=== PATIENT | female | born 1980 | race Caucasian/White ===

== ENCOUNTER 2017-06-05 00:53 | Day surgery (SDC) | payer OTHER ==
[~2017-06-05 00:53] MED LIST: ALBU90OI INH; ATOR10 PO; BUPR75 PO; Benazepril HCl20 MG PO; CYCL10 PO; Clindamycin HC300 MG PO; DOCU100 PO; DULO60 PO; FAMO40 PO; FURO40 PO; GABA300 PO; GLIP10 PO; GLIP5 PO; GLIP5ER PO; HYDACE5 PO; HYDCHL25 PO; Humalog100 UNIT/1 SC; IBUP800 PO; INSDET100 SC; INSU100I6 UD; INSUASPI SC; LABE100 PO; LAVAP17G PO; LEVEMIR FL100 UNIT/1 SC; LISI5 PO; LORA1 PO; Lantus100 UNIT/1 SC; METF500 PO; METF500C PO; METH5 PO; MIRALAX17 GM PO; MULVITMINE PO; NAPR500 PO; Neurontin300 MG PO; Novolog100 UNIT/2 SC; OXYACE5T PO; OXYC5 PO; PENVK500 PO; POTCHL10ER PO; Percocet 7.5-31 EACH PO; QUDEXY XR50 MG PO; RXHYDMOR2 PO; SULTRIDS PO; TRAM50 PO
== END 2017-06-05 13:55 | disposition home or self-care (01) ==
LOC: ATC 00:53
DX: Z48.00 Encounter for change or removal of nonsurgical wound dressing (principal); T81.31XS Disruption of external operation (surgical) wound, not elsewhere classified, sequela
CPT/HCPCS: 99211

== ENCOUNTER 2017-06-07 00:40 | Day surgery (SDC) | payer OTHER | END 2017-06-07 14:07 | disposition home or self-care (01) | LOC: ATC 00:40 | DX: T81.31XS Disruption of external operation (surgical) wound, not elsewhere classified, sequela (principal) | CPT/HCPCS: 99212 ==

== ENCOUNTER 2017-06-21 09:40 | Day surgery (SDC) | payer OTHER | END 2017-06-21 14:30 | disposition home or self-care (01) | LOC: WOUND 09:40 | PROC: 0HB7XZZ Excision of Abdomen Skin, External Approach (ICD-10-PCS; principal; 2017-06-21) | DX: Z48.00 Encounter for change or removal of nonsurgical wound dressing (principal); T81.31XS Disruption of external operation (surgical) wound, not elsewhere classified, sequela; E11.9 Type 2 diabetes mellitus without complications; E66.01 Morbid (severe) obesity due to excess calories | CPT/HCPCS: G0463 ==

== ENCOUNTER 2017-06-26 01:01 | Day surgery (SDC) | payer OTHER | END 2017-06-26 16:38 | disposition home or self-care (01) | LOC: ATC 01:01 | DX: Z48.00 Encounter for change or removal of nonsurgical wound dressing (principal); T81.31XS Disruption of external operation (surgical) wound, not elsewhere classified, sequela | CPT/HCPCS: 99211 ==

== ENCOUNTER 2017-07-03 08:00 | Day surgery (SDC) | payer OTHER | END 2017-07-03 23:01 | disposition home or self-care (01) | LOC: WOUND 08:00 | DX: Z48.00 Encounter for change or removal of nonsurgical wound dressing (principal); T81.31XS Disruption of external operation (surgical) wound, not elsewhere classified, sequela; E66.01 Morbid (severe) obesity due to excess calories | CPT/HCPCS: G0463 ==

== ENCOUNTER 2017-07-08 09:35 | Day surgery (SDC) | payer OTHER | END 2017-07-08 11:08 | disposition home or self-care (01) | LOC: WOUND 09:35 | DX: Z48.00 Encounter for change or removal of nonsurgical wound dressing (principal); T81.31XS Disruption of external operation (surgical) wound, not elsewhere classified, sequela; E11.9 Type 2 diabetes mellitus without complications; E66.01 Morbid (severe) obesity due to excess calories; D25.9 Leiomyoma of uterus, unspecified | CPT/HCPCS: G0463 ==

== ENCOUNTER 2017-07-23 10:20 | Day surgery (SDC) | payer OTHER | END 2017-07-23 23:24 | disposition home or self-care (01) | LOC: WOUND 10:20 | DX: Z48.00 Encounter for change or removal of nonsurgical wound dressing (principal); T81.31XS Disruption of external operation (surgical) wound, not elsewhere classified, sequela; E11.9 Type 2 diabetes mellitus without complications; E66.01 Morbid (severe) obesity due to excess calories | CPT/HCPCS: G0463 ==

== ENCOUNTER 2017-10-09 09:39 | Emergency (ER) | payer OTHER ==
[~2017-10-09] VITALS: Ht 172.7 cm; Wt 136.1 kg
[2017-10-09 10:36] LABS: BASOPHILS ABSOLUTE AUTO 0.05 K/mm3 (0.00-0.23); BASOPHILS PERCENT AUTO 0 % (0-2); EOSINOPHILS ABSOLUTE AUTO 0.24 K/mm3 (0.00-0.68); EOSINOPHILS PERCENT AUTO 2 % (0-6); Hematocrit 37.8 % (33.0-51.0); IMMATURE GRAN ABSOLUTE AUTO 0.07 K/mm3 (0.00-0.10); IMMATURE GRAN PERCENT AUTO 1 % (0-1); LYMPHOCYTES ABSOLUTE AUTO 2.73 K/mm3 (0.84-5.20); LYMPHOCYTES PERCENT AUTO 19 % (21-46); MONOCYTES ABSOLUTE AUTO 0.65 K/mm3 (0.16-1.47); MONOCYTES PERCENT AUTO 5 % (4-13); Mean Corpuscular HGB 28.8 pg (26.0-34.0); Mean Corpuscular HGB Conc 34.4 g/dL (31.5-36.5); Mean Corpuscular Volume 84 fL (80-100); Mean Platelet Volume 9.6 fL (9.1-12.4); NEUTROPHILS ABSOLUTE AUTO 10.86 K/mm3 (1.96-9.15); NEUTROPHILS PERCENT AUTO 74 % (41-73); Platelet Count 260 K/mm3 (150-400); RDW Coefficient Variation 14.5 % (11.7-14.2); RDW Standard Deviation 44.5 fL (35.1-46.3); Red Blood Cell Count 4.51 M/mm3 (3.80-5.20)
[2017-10-09 11:07] LABS: Anion Gap 13 mmol/L (6-16); Blood Urea Nitrogen 9 mg/dL (8-24); CO2, Blood 20 mmol/L (21-32); Calcium, Blood 8.7 mg/dL (8.5-10.1); Chloride, Blood 105 mmol/L (98-108); Creatinine, Blood 0.64 mg/dL (0.40-1.00); Glomerular Filtration Rate >60 (60-); Glucose, Blood 271 mg/dL (70-99); Potassium, Blood 3.7 mmol/L (3.5-5.5); Sodium, Blood 138 mmol/L (136-145)
[2017-10-09] MEDS ORDERED: ALBU90OI INH (12:50)
[2017-10-09] MEDS ORDERED: Prednisone20 MG PO (12:51)
== END 2017-10-09 13:30 | disposition home or self-care (01) ==
LOC: ER 09:39
PROVIDERS: Emergency Medicine
DX: J40 Bronchitis, not specified as acute or chronic (principal); E11.65 Type 2 diabetes mellitus with hyperglycemia; E11.40 Type 2 diabetes mellitus with diabetic neuropathy, unspecified; Z87.891 Personal history of nicotine dependence; Z88.0 Allergy status to penicillin; Z88.8 Allergy status to other drugs, medicaments and biological substances; Z79.899 Other long term (current) drug therapy; Z79.4 Long term (current) use of insulin
CPT/HCPCS: 71046; 80048; 85025; 94640; 99283; J1100

== ENCOUNTER → 2019-02-10 | Outpatient (CLI) | payer OTHER ==
[~2019-02-10] MED LIST changes: +Prednisone20 MG PO
== END | disposition home or self-care (01) ==
LOC: LAB 15:40 → LAB SHORT 15:40
DX: H00.015 Hordeolum externum left lower eyelid (principal); H00.035 Abscess of left lower eyelid
CPT/HCPCS: 87070; 87075; 87077; 87147; 87186; 87205

== ENCOUNTER → 2019-10-10 | Outpatient (CLI) | payer OTHER ==
[~2019-10-10] MED LIST changes: +ATOR40TA PO; +BASAGLAR K100 UNIT/2 SC; +DULO30 PO; +Doxepin HCl10 MG PO; +Flonase 0.05% N16 GM; -GABA300 PO; +GABA800 PO; +Metformin HCl1000 MG PO; +Prinivil10 MG PO; +TOPI25 PO
== END | disposition home or self-care (01) ==
LOC: LAB SHORT 17:30 → LAB 17:30
DX: L02.512 Cutaneous abscess of left hand (principal)
CPT/HCPCS: 87070; 87075; 87076; 87147; 87185; 87205

== ENCOUNTER 2019-10-14 19:10 | Inpatient (IN) | payer OTHER ==
[~2019-10-14] VITALS: Ht 172.7 cm; Wt 134.8 kg
[~2019-10-14 19:10] MED LIST changes: -ATOR40TA PO; -BASAGLAR K100 UNIT/2 SC; -DULO30 PO; -Doxepin HCl10 MG PO; -Flonase 0.05% N16 GM; -GABA800 PO; -Metformin HCl1000 MG PO; -Prinivil10 MG PO; -TOPI25 PO
[2019-10-14 19:47] LABS: BASOPHILS ABSOLUTE AUTO 0.06 K/mm3 (0.00-0.23); BASOPHILS PERCENT AUTO 0 % (0-2); EOSINOPHILS ABSOLUTE AUTO 0.09 K/mm3 (0.00-0.68); EOSINOPHILS PERCENT AUTO 1 % (0-6); Hematocrit 38.7 % (33.0-51.0); Hemoglobin 12.9 g/dL (11.5-16.0); IMMATURE GRAN PERCENT AUTO 1 % (0-1); LYMPHOCYTES ABSOLUTE AUTO 3.43 K/mm3 (0.84-5.20); LYMPHOCYTES PERCENT AUTO 25 % (21-46); MONOCYTES ABSOLUTE AUTO 0.86 K/mm3 (0.16-1.47); MONOCYTES PERCENT AUTO 6 % (4-13); Mean Corpuscular HGB 28.9 pg (26.0-34.0); Mean Corpuscular HGB Conc 33.3 g/dL (31.5-36.5); Mean Corpuscular Volume 87 fL (80-100); Mean Platelet Volume 9.9 fL (9.1-12.4); NEUTROPHILS ABSOLUTE AUTO 9.44 K/mm3 (1.96-9.15); NEUTROPHILS PERCENT AUTO 68 % (41-73); Platelet Count 286 K/mm3 (150-400); RDW Coefficient Variation 13.3 % (11.7-14.2); Red Blood Cell Count 4.46 M/mm3 (3.80-5.20); White Blood Cell Count 13.98 K/mm3 (4.00-11.30)
[2019-10-14 20:11] LABS: Alanine Aminotransfer (ALT/SGP 24 U/L (12-78); Albumin, Blood 3.3 g/dL (3.4-5.0); Albumin/Globulin Ratio 0.8 (0.8-1.8); Alk Phos 82 U/L (50-136); Anion Gap 8 mmol/L (6-16); Aspartate Aminotrans (AST/SGOT 13 U/L (12-37); Bilirubin, Total 0.4 mg/dL (0.1-1.0); Blood Urea Nitrogen 13 mg/dL (8-24); Bun/Creatinine Ratio 19.1 (12.0-20.0); CO2, Blood 25 mmol/L (21-32); Calcium, Blood 8.8 mg/dL (8.5-10.1); Chloride, Blood 100 mmol/L (98-108); Creatinine, Blood 0.68 mg/dL (0.40-1.00); Globulin, Blood 4.3 g/dL (2.2-4.0); Glomerular Filtration Rate >60 (60-); Glucose, Blood 403 mg/dL (70-99); Potassium, Blood 3.8 mmol/L (3.5-5.5); Sodium, Blood 133 mmol/L (136-145); Total Protein, Blood 7.6 g/dL (6.4-8.2)
[2019-10-14] MEDS ORDERED: GABA800 PO (22:01)
[2019-10-14] MEDS ORDERED: ATOR40TA PO (22:02)
[2019-10-14] MEDS ORDERED: Doxepin HCl10 MG PO (22:02)
[2019-10-14] MEDS ORDERED: Prinivil10 MG PO (22:03)
[2019-10-14] MEDS ORDERED: LISI5 PO (22:03)
[2019-10-14] MEDS ORDERED: DULO30 PO (22:04)
[2019-10-14] MEDS ORDERED: Metformin HCl1000 MG PO (22:04)
[2019-10-14] MEDS ORDERED: Flonase 0.05% N16 GM (22:05)
[2019-10-14] MEDS ORDERED: TOPI25 PO (22:05)
[2019-10-14] MEDS ORDERED: BASAGLAR K100 UNIT/2 SC (22:09)
--- NOTE | 2019-10-15 04:19 | NUR ---
SHIFT SUMMARY/ADMIT NOTE RECEIVED HANDOFF FROM ER NURSE JEWELS. PT BROUGHT TO FLOOR VIA GURNEY. POSSESSIONS IN ROOM. PT ORIENTED TO UNIT. CALL BUTTON WITHIN REACH. HOME MEDICATIONS SENT TO PHARMACY FOR SAFE KEEPING. ADMITTED FOR FINGER INFECTION OF LEFT 4TH FINGER. FULL CODE. 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 WBC'S WERE ELEVATED ON ADMISSION 13.98. PT HAS SEEN OUTPT [facility] FOR THIS AND BEEN ON TWO DIFFERENT ANTIBIOTICS WITHOUT EFFECT. REFERRED BY DR RUBIO. SHE IS ON A CLEAR LIQUID DIET, WILL BE NPO @ 10 AM. DO EXPECT AN ADA DIET FOLLOWING SURGICAL PROCEDURE WHEN APPROVED TO EAT. NS IS INFUSING @ 100 ML/HR. SHE INFORMS ME SHE HAS SEVERE NEUROPATHY AND IT AFFECTS HER MOBILITY. HER A1C WILL BE DRAWN WITH MORNING LABS. SHE INFORMS ME SHE HAS PROBLEMS WITH SLOW HEALING. SHE DOES TAKE METFORMIN. SHE IS A&O X4, HAS ANXIETY AND DEPRESSION, INDEPENDENT IN ROOM. SHE LIVES WITH HER ADULT DAUGHTER.
[2019-10-15 05:32] LABS: BASOPHILS ABSOLUTE AUTO 0.05 K/mm3 (0.00-0.23); BASOPHILS PERCENT AUTO 0 % (0-2); EOSINOPHILS ABSOLUTE AUTO 0.13 K/mm3 (0.00-0.68); EOSINOPHILS PERCENT AUTO 1 % (0-6); Hemoglobin 12.7 g/dL (11.5-16.0); IMMATURE GRAN ABSOLUTE AUTO 0.04 K/mm3 (0.00-0.10); IMMATURE GRAN PERCENT AUTO 0 % (0-1); LYMPHOCYTES ABSOLUTE AUTO 3.79 K/mm3 (0.84-5.20); LYMPHOCYTES PERCENT AUTO 31 % (21-46); MONOCYTES ABSOLUTE AUTO 0.76 K/mm3 (0.16-1.47); MONOCYTES PERCENT AUTO 6 % (4-13); Mean Corpuscular HGB 29.5 pg (26.0-34.0); Mean Corpuscular HGB Conc 33.4 g/dL (31.5-36.5); Mean Corpuscular Volume 88 fL (80-100); Mean Platelet Volume 9.7 fL (9.1-12.4); NEUTROPHILS ABSOLUTE AUTO 7.62 K/mm3 (1.96-9.15); NEUTROPHILS PERCENT AUTO 62 % (41-73); Platelet Count 264 K/mm3 (150-400); RDW Coefficient Variation 13.2 % (11.7-14.2); RDW Standard Deviation 42.5 fL (35.1-46.3); Red Blood Cell Count 4.31 M/mm3 (3.80-5.20); White Blood Cell Count 12.39 K/mm3 (4.00-11.30)
[2019-10-15 05:51] LABS: Alanine Aminotransfer (ALT/SGP 27 U/L (12-78); Albumin, Blood 3.1 g/dL (3.4-5.0); Albumin/Globulin Ratio 0.8 (0.8-1.8); Alk Phos 80 U/L (50-136); Anion Gap 4 mmol/L (6-16); Aspartate Aminotrans (AST/SGOT 15 U/L (12-37); Bilirubin, Total 0.3 mg/dL (0.1-1.0); Blood Urea Nitrogen 11 mg/dL (8-24); Bun/Creatinine Ratio 17.5 (12.0-20.0); CO2, Blood 26 mmol/L (21-32); Calcium, Blood 8.6 mg/dL (8.5-10.1); Chloride, Blood 105 mmol/L (98-108); Creatinine, Blood 0.63 mg/dL (0.40-1.00); Globulin, Blood 4.1 g/dL (2.2-4.0); Glomerular Filtration Rate >60 (60-); Glucose, Blood 321 mg/dL (70-99); Magnesium, Blood 1.9 mg/dL (1.6-2.4); Potassium, Blood 3.7 mmol/L (3.5-5.5); Sodium, Blood 135 mmol/L (136-145); Total Protein, Blood 7.2 g/dL (6.4-8.2); Troponin I <0.015 ng/mL (0.000-0.040)
--- NOTE | 2019-10-15 11:02 | NUR ---
I was not told in report the pt in room 360 was ac/hs blood sugars, the glucose order was not updated on my paper.
--- NOTE | 2019-10-15 18:31 | NUR ---
PT'S CELL PHONE TAKEN BACK TO ROOM 360 BY RN.
--- NOTE | 2019-10-15 18:31 | NUR ---
PT TRANSFERED TO [facility] FROM [facility] VIA GURNEY. History, Chart, Medications and Allergies reviewed before start of procedure. Lungs clear T/O to Auscultation. Patient confirms NPO status and agrees with scheduled surgery.
[2019-10-16 04:07] LABS: BASOPHILS ABSOLUTE AUTO 0.05 K/mm3 (0.00-0.23); BASOPHILS PERCENT AUTO 0 % (0-2); EOSINOPHILS ABSOLUTE AUTO 0.06 K/mm3 (0.00-0.68); EOSINOPHILS PERCENT AUTO 0 % (0-6); Hematocrit 36.6 % (33.0-51.0); IMMATURE GRAN ABSOLUTE AUTO 0.06 K/mm3 (0.00-0.10); IMMATURE GRAN PERCENT AUTO 0 % (0-1); LYMPHOCYTES ABSOLUTE AUTO 3.97 K/mm3 (0.84-5.20); LYMPHOCYTES PERCENT AUTO 29 % (21-46); MONOCYTES ABSOLUTE AUTO 0.72 K/mm3 (0.16-1.47); MONOCYTES PERCENT AUTO 5 % (4-13); Mean Corpuscular HGB 29.1 pg (26.0-34.0); Mean Corpuscular HGB Conc 32.8 g/dL (31.5-36.5); Mean Corpuscular Volume 89 fL (80-100); Mean Platelet Volume 9.4 fL (9.1-12.4); NEUTROPHILS ABSOLUTE AUTO 9.02 K/mm3 (1.96-9.15); NEUTROPHILS PERCENT AUTO 65 % (41-73); Platelet Count 262 K/mm3 (150-400); RDW Coefficient Variation 13.3 % (11.7-14.2); RDW Standard Deviation 42.9 fL (35.1-46.3); Red Blood Cell Count 4.13 M/mm3 (3.80-5.20); White Blood Cell Count 13.88 K/mm3 (4.00-11.30)
--- NOTE | 2019-10-16 04:11 | NUR ---
PT WOKE PER LAB WITH C/O INCREASED PAIN. INCREASED SWELLING NOTED.KEEPING L HAND ELEVATED AND ON ICE. WIGGLES FINGERS REEFILL BRISK WITH RADIAL PULSE PRESENT.PT REPORTS HX KIDNEY FAILURE YRS AGO SO UNABLE TO REQUEST TORADOL. I CALLED DR JOHN AND FENTANYL X 1 WAS ORDERED.
--- NOTE | 2019-10-16 04:24 | NUR ---
PT RECEIVED FENTANYL 25 MCG PER ORDERS.CONTINUES WITH PAIN LEVEL 10. TEARFUL. PTS CREATININE AND GFR WNL. PT STILL DOES NOT WANT TO TAKE ANY TORADOL OR SIMILAR FEARFUL OF POTENTIAL ISSUES WITH KIDNEYS. PT WEIGHT IS 134.KG CALLED DR JOHN. DILAUDID 1 MG IV ORDERED.
[2019-10-16 04:25] LABS: Anion Gap 6 mmol/L (6-16); Blood Urea Nitrogen 8 mg/dL (8-24); Bun/Creatinine Ratio 11.9 (12.0-20.0); CO2, Blood 24 mmol/L (21-32); Calcium, Blood 8.1 mg/dL (8.5-10.1); Chloride, Blood 106 mmol/L (98-108); Creatinine, Blood 0.67 mg/dL (0.40-1.00); Glomerular Filtration Rate >60 (60-); Glucose, Blood 286 mg/dL (70-99); Potassium, Blood 3.7 mmol/L (3.5-5.5); Sodium, Blood 136 mmol/L (136-145)
--- NOTE | 2019-10-16 04:58 | NUR ---
PT CONTINUES TEARFUL WITH PAIN. RATES LEVEL 8.PT COOPERATIVE WITH ELEVATION AND ICE.CALL OUT TO DR RUBIO.
--- NOTE | 2019-10-16 05:19 | NUR ---
STILL WAITING RETURN CALL. ANS SERVICE WILL MESSAGE HIM AGAIN.
--- NOTE | 2019-10-16 11:38 | NUR ---
dressing change dr Garcia here and dressing change done with xerofoam, telfa and wrapped with small roll gauze.
--- NOTE | 2019-10-16 12:08 | NUR ---
PT TEARFUL, REPORTS PAIN TO FINGER IS 10/10. SPOKE WITH DR CASILLAS REGARDING PAIN AND ORDERS RECEIVED. SPOKE WITH PATIENT REGARDING PAIN MEDS AND PT ANGRY, CURSING, SOBBING AND STATES SHE IS BEING DENIED PAIN MEDS BECAUSE OF WHICH INSURANCE SHE HAS. SPOKE AT LENGTH WITH PATIENT AND ASSURED HER THAT HER MEDICAL CARE IS NOT BEING DECIDED BASED ON HER INSURANCE.PT REMAINS ANGRY AND CURSING REGARDING THAT SHE WANTS PAIN MEDICINE AT THIS TIME AND PER PARAMETERS IT IS TO EARLY TO MEDICATE
[2019-10-16] MEDS ORDERED: VISBIOME 112.51 EACH PO (14:23)
[2019-10-16] MEDS ORDERED: AMOCLA500 PO (14:24)
[2019-10-16] MEDS ORDERED: ROXICODONE5 MG PO (14:25)
--- NOTE | 2019-10-16 14:52 | NUR ---
DISCHARGED TO HOME . PT TAKEN TO PHARMACY TO RETRIEVE HER HOME MEDS. DRESSING DRY AND INTACTTOHAND. PT VERBALIZES UNDERSTANDING OF DISCHARGE INSTRUCTIONS
== END 2019-10-16 14:40 | disposition home or self-care (01) | DRG 988 ==
LOC: ER 19:10 → MEDS 23:59 → SURS 10-15 19:46
PROVIDERS: Emergency Medicine; Internal Medicine; Nurse Practitioner Acute Care; Orthopaedic Surgery; ADMIT Internal Medicine
PROC: 0X6T0Z3 Detachment at Left Ring Finger, Low, Open Approach (ICD-10-PCS; principal; 2019-10-15 17:15)
DX: E11.69 Type 2 diabetes mellitus with other specified complication (principal); M86.142 Other acute osteomyelitis, left hand; Z68.42 Body mass index [BMI] 45.0-49.9, adult; B95.1 Streptococcus, group B, as the cause of diseases classified elsewhere; E11.65 Type 2 diabetes mellitus with hyperglycemia; E66.01 Morbid (severe) obesity due to excess calories; I10 Essential (primary) hypertension; E78.5 Hyperlipidemia, unspecified; F32.9 Major depressive disorder, single episode, unspecified; F17.210 Nicotine dependence, cigarettes, uncomplicated; Z79.4 Long term (current) use of insulin; F41.1 Generalized anxiety disorder
CPT/HCPCS: 36415; 73140; 73223; 80048; 80053; 80202; 82947; 83036; 83605; 83735; 84484; 85025; 85651; 86140; 87040; 87070; 87205; 88305; 88311; 93005; 93010; 96365; 96367; 96375; 97110; 97165; 99284-25; A9270-GY; A9577; J1170; J2250; J2405; J2543; J2704; J3010; J3370; J7030; J7050; J7120

== ENCOUNTER 2020-05-06 11:01 | Emergency (ER) | payer OTHER ==
[~2020-05-06] VITALS: Ht 172.7 cm; Wt 131.5 kg
[~2020-05-06 11:01] MED LIST changes: +AMOCLA500 PO; +ATOR40TA PO; +BASAGLAR K100 UNIT/6 SC; +DULO30 PO; +Doxepin HCl10 MG PO; +Flonase 0.05% N16 GM; +GABA800 PO; +Metformin HCl1000 MG PO; +Prinivil10 MG PO; +ROXICODONE5 MG PO; +TOPI25 PO; +VISBIOME 112.51 EACH PO
[2020-05-06] MEDS ORDERED: FENO48 PO (12:57)
[2020-05-06] MEDS ORDERED: LISI5 PO (12:58)
[2020-05-06] MEDS ORDERED: Mucinex600 MG PO (13:26)
[2020-05-06] MEDS ORDERED: AZIT250 PO (13:26)
== END 2020-05-06 13:43 | disposition home or self-care (01) ==
LOC: ER 11:01
DX: U07.1 COVID-19 (principal); R06.02 Shortness of breath; R05 Cough; R68.83 Chills (without fever); E11.9 Type 2 diabetes mellitus without complications; I10 Essential (primary) hypertension; E78.00 Pure hypercholesterolemia, unspecified; E78.5 Hyperlipidemia, unspecified; F32.9 Major depressive disorder, single episode, unspecified; Z79.4 Long term (current) use of insulin; Z79.899 Other long term (current) drug therapy; Z88.0 Allergy status to penicillin; Z88.5 Allergy status to narcotic agent; Z88.8 Allergy status to other drugs, medicaments and biological substances
CPT/HCPCS: 71045; 99283-25

== ENCOUNTER 2020-05-10 16:00 | Emergency (ER) | payer OTHER ==
[~2020-05-10] VITALS: Ht 172.7 cm; Wt 131.5 kg
[~2020-05-10 16:00] MED LIST changes: +AZIT250 PO; +FENO48 PO; +Mucinex600 MG PO
[2020-05-10] MEDS ORDERED: DIPATR PO (16:54)
[2020-05-10] MEDS ORDERED: COMPAZINE10 MG PO (16:54)
== END 2020-05-10 17:21 | disposition home or self-care (01) ==
LOC: ER 16:00
DX: U07.1 COVID-19 (principal); R05 Cough; E11.9 Type 2 diabetes mellitus without complications; I10 Essential (primary) hypertension; E66.01 Morbid (severe) obesity due to excess calories; E78.5 Hyperlipidemia, unspecified; F41.9 Anxiety disorder, unspecified; Z79.899 Other long term (current) drug therapy; Z79.4 Long term (current) use of insulin
CPT/HCPCS: 99283

== ENCOUNTER → 2021-05-10 | Outpatient (CLI) | payer OTHER ==
[~2021-05-10] MED LIST changes: +COMPAZINE10 MG PO; +DIPATR PO
[2021-05-12 11:12] LABS: HPV 16 Negative (Negative); HPV 18 Negative (Negative); HPV OTHER HR TYPES Negative (Negative)
== END | disposition home or self-care (01) ==
LOC: LAB SHORT 12:54
PROVIDERS: Nurse Practitioner Family
DX: Z12.4 Encounter for screening for malignant neoplasm of cervix (principal)
CPT/HCPCS: 87624; G0123

== ENCOUNTER 2021-09-14 15:22 | Emergency (ER) | payer OTHER ==
[~2021-09-14] VITALS: Ht 172.7 cm; Wt 122.5 kg
[2021-09-14] MEDS ORDERED: CYCLOBENZAPRINE5 MG PO (19:51)
== END 2021-09-14 19:55 | disposition home or self-care (01) ==
LOC: ER 15:22
DX: R10.30 Lower abdominal pain, unspecified (principal); E11.9 Type 2 diabetes mellitus without complications; I10 Essential (primary) hypertension; E78.5 Hyperlipidemia, unspecified; F17.200 Nicotine dependence, unspecified, uncomplicated; Z79.899 Other long term (current) drug therapy; Z88.0 Allergy status to penicillin; Z88.8 Allergy status to other drugs, medicaments and biological substances; Z79.4 Long term (current) use of insulin; V89.2XXA Person injured in unspecified motor-vehicle accident, traffic, initial encounter
CPT/HCPCS: 36415; 74177; 96374; 99284-25; A9270; J1885; Q9967

== ENCOUNTER → 2021-12-31 | Outpatient (CLI) | payer OTHER ==
[~2021-12-31] MED LIST changes: +CYCLOBENZAPRINE5 MG PO
== END | disposition home or self-care (01) ==
LOC: LAB 13:16 → LAB SHORT 13:16
DX: K12.0 Recurrent oral aphthae (principal)
CPT/HCPCS: 87070; 87075; 87205

== ENCOUNTER 2022-05-29 10:13 | Emergency (ER) | payer OTHER ==
[~2022-05-29] VITALS: Ht 172.7 cm; Wt 136.1 kg
== END 2022-05-29 13:46 | disposition home or self-care (01) ==
LOC: ER 10:13
DX: M54.50 Low back pain, unspecified (principal); L02.415 Cutaneous abscess of right lower limb; E11.9 Type 2 diabetes mellitus without complications; I10 Essential (primary) hypertension; E78.5 Hyperlipidemia, unspecified; F17.210 Nicotine dependence, cigarettes, uncomplicated; Z88.0 Allergy status to penicillin; Z88.5 Allergy status to narcotic agent; Z88.8 Allergy status to other drugs, medicaments and biological substances; Z79.899 Other long term (current) drug therapy; Z79.4 Long term (current) use of insulin
CPT/HCPCS: A9270; J1100

== ENCOUNTER → 2022-11-21 | Outpatient (CLI) | payer OTHER | END | disposition home or self-care (01) | LOC: LAB SHORT 09:01 → LAB 09:01 | DX: L72.3 Sebaceous cyst (principal) | CPT/HCPCS: 87070; 87075; 87205 ==

== ENCOUNTER 2023-07-09 09:58 | Emergency (ER) | payer OTHER ==
[~2023-07-09] VITALS: Ht 172.7 cm; Wt 122.5 kg
[~2023-07-09 09:58] MED LIST changes: -BASAGLAR K100 UNIT/6 SC; +LANTUS SOL100 UNIT/1 SC
[2023-07-09 11:02] LABS: BASOPHILS ABSOLUTE AUTO 0.06 K/mm3 (0.00-0.23); BASOPHILS PERCENT AUTO 1 % (0-2); EOSINOPHILS ABSOLUTE AUTO 0.11 K/mm3 (0.00-0.68); EOSINOPHILS PERCENT AUTO 1 % (0-6); Hematocrit 39.8 % (33.0-51.0); IMMATURE GRAN ABSOLUTE AUTO 0.08 K/mm3 (0.00-0.10); IMMATURE GRAN PERCENT AUTO 1 % (0-1); LYMPHOCYTES ABSOLUTE AUTO 2.88 K/mm3 (0.84-5.20); LYMPHOCYTES PERCENT AUTO 23 % (21-46); MONOCYTES ABSOLUTE AUTO 0.57 K/mm3 (0.16-1.47); MONOCYTES PERCENT AUTO 5 % (4-13); Mean Corpuscular HGB 27.9 pg (26.0-34.0); Mean Corpuscular HGB Conc 35.2 g/dL (31.5-36.5); Mean Corpuscular Volume 79 fL (80-100); Mean Platelet Volume 9.5 fL (9.1-12.4); NEUTROPHILS ABSOLUTE AUTO 8.96 K/mm3 (1.96-9.15); NEUTROPHILS PERCENT AUTO 71 % (41-73); Platelet Count 430 K/mm3 (150-400); RDW Coefficient Variation 13.2 % (11.7-14.2); RDW Standard Deviation 37.6 fL (35.1-46.3); Red Blood Cell Count 5.02 M/mm3 (3.80-5.20); White Blood Cell Count 12.66 K/mm3 (4.00-11.30)
[2023-07-09 11:24] LABS: Bilirubin, Total 0.3 mg/dL (0.1-1.0); Bun/Creatinine Ratio 17.8 (12.0-20.0); Calcium, Blood 9.9 mg/dL (8.5-10.1); Creatinine, Blood 1.01 mg/dL (0.40-1.00); Globulin, Blood 4.1 g/dL (2.2-4.0); Total Protein, Blood 8.1 g/dL (6.4-8.2)
[2023-07-09 11:41] LABS: Influenza A, PCR NEGATIVE (NEGATIVE); Influenza B, PCR NEGATIVE (NEGATIVE); Resp Syncytial Virus, PCR NEGATIVE (NEGATIVE); SARS-Cov-2 (COVID-19) PCR, MMC NEGATIVE (NEGATIVE)
[2023-07-09 13:49] VITALS: BP 146/74
[2023-07-09] MEDS ORDERED: OXYC5 PO (13:54)
[2023-07-10] MEDS ORDERED: ONDA4ODT MM (17:01)
== END 2023-07-09 14:06 | disposition home or self-care (01) ==
LOC: ER 09:58
PROVIDERS: Emergency Medicine; Physician Assistant
DX: K85.90 Acute pancreatitis without necrosis or infection, unspecified (principal); Z11.52 Encounter for screening for COVID-19; Z87.891 Personal history of nicotine dependence
CPT/HCPCS: 0241U; 71046; 74177; 80053; 83690; 84484; 85025; 93005; 93010; 96361; 96374; 96375; 96376; 99285-25; J2060; J2405; J7030; Q9967

== ENCOUNTER 2023-07-10 15:55 | Emergency (ER) | payer OTHER ==
[~2023-07-10] VITALS: Ht 172.7 cm; Wt 127.0 kg
[2023-07-10 16:31] VITALS: BP 164/93
[2023-07-10] MEDS ORDERED: ONDA4ODT MM (17:01)
== END 2023-07-10 17:18 | disposition home or self-care (01) ==
LOC: ER 15:55
DX: R11.10 Vomiting, unspecified (principal); E11.9 Type 2 diabetes mellitus without complications; I10 Essential (primary) hypertension; E78.5 Hyperlipidemia, unspecified; F17.210 Nicotine dependence, cigarettes, uncomplicated; Z88.0 Allergy status to penicillin; Z88.5 Allergy status to narcotic agent; Z88.8 Allergy status to other drugs, medicaments and biological substances; Z79.4 Long term (current) use of insulin; Z79.84 Long term (current) use of oral hypoglycemic drugs; Z79.899 Other long term (current) drug therapy
CPT/HCPCS: A9270

== ENCOUNTER 2023-07-12 12:00 | Inpatient (IN) | payer OTHER ==
[~2023-07-12] VITALS: Ht 172.7 cm; Wt 123.5 kg
[~2023-07-12 12:00] MED LIST changes: +ONDA4ODT MM
[2023-07-12 12:52] LABS: BASOPHILS ABSOLUTE AUTO 0.04 K/mm3 (0.00-0.23); BASOPHILS PERCENT AUTO 0 % (0-2); EOSINOPHILS PERCENT AUTO 0 % (0-6); Hematocrit 39.1 % (33.0-51.0); Hemoglobin 14.1 g/dL (11.5-16.0); IMMATURE GRAN ABSOLUTE AUTO 0.08 K/mm3 (0.00-0.10); IMMATURE GRAN PERCENT AUTO 0 % (0-1); LYMPHOCYTES ABSOLUTE AUTO 4.44 K/mm3 (0.84-5.20); LYMPHOCYTES PERCENT AUTO 25 % (21-46); MONOCYTES ABSOLUTE AUTO 0.96 K/mm3 (0.16-1.47); MONOCYTES PERCENT AUTO 5 % (4-13); Mean Corpuscular HGB 27.5 pg (26.0-34.0); Mean Corpuscular HGB Conc 36.1 g/dL (31.5-36.5); Mean Corpuscular Volume 76 fL (80-100); Mean Platelet Volume 8.9 fL (9.1-12.4); NEUTROPHILS ABSOLUTE AUTO 12.48 K/mm3 (1.96-9.15); NEUTROPHILS PERCENT AUTO 69 % (41-73); Platelet Count 400 K/mm3 (150-400); RDW Coefficient Variation 13.1 % (11.7-14.2); RDW Standard Deviation 35.8 fL (35.1-46.3); Red Blood Cell Count 5.12 M/mm3 (3.80-5.20)
[2023-07-12 13:18] LABS: Magnesium, Blood 1.7 mg/dL (1.6-2.4)
[2023-07-12 13:19] LABS: Alanine Aminotransfer (ALT/SGP 21 U/L (12-78); Albumin, Blood 3.8 g/dL (3.4-5.0); Albumin/Globulin Ratio 0.9 (0.8-1.8); Alk Phos 54 U/L (50-136); Anion Gap 15 mmol/L (6-16); Aspartate Aminotrans (AST/SGOT 13 U/L (12-37); Bilirubin, Total 0.6 mg/dL (0.1-1.0); Blood Urea Nitrogen 26 mg/dL (8-24); Bun/Creatinine Ratio 26.6 (12.0-20.0); CO2, Blood 18 mmol/L (21-32); Calcium, Blood 8.8 mg/dL (8.5-10.1); Chloride, Blood 99 mmol/L (98-108); Creatinine, Blood 0.98 mg/dL (0.40-1.00); Globulin, Blood 4.2 g/dL (2.2-4.0); Glomerular Filtration Rate 73 (60-); Glucose, Blood 345 mg/dL (70-99); Potassium, Blood 3.4 mmol/L (3.5-5.5); Sodium, Blood 132 mmol/L (136-145)
[2023-07-12 16:45] LABS: Triglycerides 522 mg/dL (30-160)
[2023-07-12] MEDS ORDERED: FURO20 PO (19:44)
[2023-07-12 19:51] VITALS: BP 144/75
--- NOTE | 2023-07-13 01:44 | NUR ---
ADMISSION NOTE MS MIGUEL WAS ADMITTED TO MEDICAL UNIT FROM ER AT 1855 07/12/23. HER MOM HAS BEEN STAYING WITH HER WHICH MS MIGUEL SAID HELPS TO DECREASE HER ANXIETY. PT SAID THAT SHE NORMALLY USES MJ DAILY, BOTH BONG USE AND EDIBLES. SHE HAS FREQUENT FALLS AT HOME, WEARS A MEDICAL CALL [place]KL[place] AT HOME FOR FALLS. SHE WALKS WITH A WALKER AND A CANE AT HOME. SHE SAID HER DAUGHTER ROUTINELY HELPS HER WITH ADLS; PREPARING HER FOOD, HELPING HER TO BATHE. SHE IS NPO, IVF INFUSING. SHE HAS REQUIRED ONE DOSE OF IV FENTANYL SINCE BEING ON MEDICAL FLOOR WHICH HELPED MANAGE HER PAIN WELL. SHE HAS NOT HAD NAUSEA SINCE ADMISSION. SHE DOES NOT ACCURATELY REMEMBER HER MEDICATIONS AND FAMILY WILL BRING A LIST IN IN THE DAY TIME 07/13. MS MIGUEL REQUIRES 1 PERSON ASSIST AND WALKER TO AMBULATE. SHE VERBALISED AGREEMENT NOT TO GET UP OUT OF BED WITHOUT STAFF MEMBER IN ATTENDANCE. BED LOW, CALL LIGHT IN REACH.
[2023-07-13 03:41] VITALS: BP 143/68
--- NOTE | 2023-07-13 04:48 | NUR ---
SHIFT SUMMARY PLEASE SEE ADMIT NOTE ENTERED 0144. MS MIGUEL HAS DENIED NAUSEA THIS SHIFT. SHE HAS TAKEN 2 DOSES OF 50MCG FENTANYL WHICH HAS HELPED TO CONTROL HER ABDOMINAL PAIN WELL. SHE HAS BEEN NPO WITH IVF INFUSING AT 150CC/HR. BED LOW, CALL LIGHT IN REACH.
[2023-07-13 05:27] LABS: Hematocrit 35.6 % (33.0-51.0); Hemoglobin 12.4 g/dL (11.5-16.0); Mean Corpuscular HGB 27.7 pg (26.0-34.0); Mean Corpuscular HGB Conc 34.8 g/dL (31.5-36.5); Mean Corpuscular Volume 80 fL (80-100); Mean Platelet Volume 9.4 fL (9.1-12.4); Platelet Count 337 K/mm3 (150-400); RDW Coefficient Variation 13.2 % (11.7-14.2); RDW Standard Deviation 37.9 fL (35.1-46.3); Red Blood Cell Count 4.48 M/mm3 (3.80-5.20); White Blood Cell Count 15.94 K/mm3 (4.00-11.30)
[2023-07-13 06:08] LABS: Bun/Creatinine Ratio 23.5 (12.0-20.0); Calcium, Blood 8.1 mg/dL (8.5-10.1); Creatinine, Blood 0.89 mg/dL (0.40-1.00); Potassium, Blood 3.5 mmol/L (3.5-5.5)
[2023-07-13 07:41] VITALS: BP 145/72
[2023-07-13 14:53] VITALS: BP 152/87
--- NOTE | 2023-07-13 18:18 | NUR ---
SHIFT SUMMARY PATIENT WITH NO ACUTE EVENTS DURING SHIFT. SHE REPORTS DECREASING PAIN THIS EVENING 08/03 AND IS TOLERATING CLEAR LIQUIDS AT THIS TIME. BED IN LOW POSTION, CALL LIGHT IN REACH. PATIENT USES CALL LIGHT APPROPRIATELY AND IS UP AD YAJAIRA TO THE BATHROOM.
[2023-07-13 20:14] VITALS: BP 149/71
[2023-07-13] MEDS ORDERED: ALBU90OI INH (21:03)
[2023-07-13] MEDS ORDERED: ALOGLIPTIN25 M1 PO (21:04)
[2023-07-13] MEDS ORDERED: Bupropion HCl75 MG PO (21:06)
[2023-07-13] MEDS ORDERED: TRAZ150T57 PO (21:14)
[2023-07-13] MEDS ORDERED: RYBELSUS3 MG PO (21:16)
[2023-07-13] MEDS ORDERED: HUMALOG JU100 UNIT/2 SC (21:16)
--- NOTE | 2023-07-14 00:11 | NUR ---
MD CALL MS MIGUEL IS ON TRAZADONE 150MG PO QHS AT HOME AND IS REQUESTING A DOSE NOW. TELEPHONE ORDER FROM DR PINTO TO GIVE TRAZADONE 150MG PO QHS, FIRST DOSE NOW AND TO CHANGE S/S INSULIN TO AC/HS. READ BACK DONE AND ORDER ENTERED INTO [employer].
[2023-07-14 02:49] VITALS: BP 141/82
--- NOTE | 2023-07-14 04:49 | NUR ---
SHIFT SUMMARY MS MIGUEL HAD C/O THE SAME MID UPPER ABDOMINAL PAIN EARLIER THIS SHIFT AND PAIN WAS RELIEVED WITH A LOWER DOSE OF 25MCG FENTANYL IV. SHE HAS NOT C/O ANY NAUSEA. SHE WAS OVERLY TIRED AND HAVING DIFFICULTY SLEEPING LAST NIGHT BUT DOES SEEM TO HAVE SLEPT AFTER TAKING TRAMADOL. IVF CONTNUE AT 150CC/HR. 2 EPISODES OF DIARRHEA LAST EVENING. BED LOW, CALL LIGHT IN REACH.
[2023-07-14 05:20] LABS: BASOPHILS ABSOLUTE AUTO 0.03 K/mm3 (0.00-0.23); BASOPHILS PERCENT AUTO 0 % (0-2); EOSINOPHILS ABSOLUTE AUTO 0.08 K/mm3 (0.00-0.68); EOSINOPHILS PERCENT AUTO 1 % (0-6); Hematocrit 36.1 % (33.0-51.0); Hemoglobin 12.2 g/dL (11.5-16.0); IMMATURE GRAN ABSOLUTE AUTO 0.05 K/mm3 (0.00-0.10); IMMATURE GRAN PERCENT AUTO 0 % (0-1); LYMPHOCYTES ABSOLUTE AUTO 3.78 K/mm3 (0.84-5.20); LYMPHOCYTES PERCENT AUTO 30 % (21-46); MONOCYTES ABSOLUTE AUTO 0.79 K/mm3 (0.16-1.47); MONOCYTES PERCENT AUTO 6 % (4-13); Mean Corpuscular HGB 27.2 pg (26.0-34.0); Mean Corpuscular HGB Conc 33.8 g/dL (31.5-36.5); Mean Corpuscular Volume 81 fL (80-100); Mean Platelet Volume 9.4 fL (9.1-12.4); NEUTROPHILS ABSOLUTE AUTO 7.69 K/mm3 (1.96-9.15); NEUTROPHILS PERCENT AUTO 62 % (41-73); Platelet Count 283 K/mm3 (150-400); RDW Coefficient Variation 13.2 % (11.7-14.2); RDW Standard Deviation 37.8 fL (35.1-46.3); Red Blood Cell Count 4.48 M/mm3 (3.80-5.20); White Blood Cell Count 12.42 K/mm3 (4.00-11.30)
[2023-07-14 05:33] LABS: Calcium, Blood 8.2 mg/dL (8.5-10.1); Creatinine, Blood 0.88 mg/dL (0.40-1.00); Potassium, Blood 3.4 mmol/L (3.5-5.5)
[2023-07-14 07:52] VITALS: BP 139/78
[2023-07-14] MEDS ORDERED: CREON DR 12,001 EACH PO (10:29)
--- NOTE | 2023-07-14 13:45 | NUR ---
DISCHARGE SUMMARY PATIENT WITH NO ACUTE EVENTS THIS AM. TOLERATING CLEAR LIQUIDS WELL WITH NO PAIN. SHE GETS UP TO USE THE BATHROOM AD YAJAIRA. NO COMPLAINTS TODAY. MEDICATION AND EDUCATION PACKET PRINTED AND GIVEN TO PATIENT. CONSENT SIGNED. IV REMOVED BY THIS BREAK OUT WORKER WITH NO ISSUES. PATIENT LEFT UNIT AT 1205 WITH MOTHER VIA TRANSPORT CHAIR AND LEAVING HOSPITAL VIA PRIVATE VEHICLE.
== END 2023-07-14 11:55 | disposition home or self-care (01) | DRG 439 ==
LOC: ER 12:00 → MEDS 18:22
PROVIDERS: Nurse Practitioner Acute Care; Physician Assistant; ADMIT Internal Medicine
DX: K85.90 Acute pancreatitis without necrosis or infection, unspecified (principal); Z68.41 Body mass index [BMI] 40.0-44.9, adult; E11.9 Type 2 diabetes mellitus without complications; I10 Essential (primary) hypertension; E66.01 Morbid (severe) obesity due to excess calories; E78.5 Hyperlipidemia, unspecified; F17.210 Nicotine dependence, cigarettes, uncomplicated; F41.8 Other specified anxiety disorders; E86.0 Dehydration; I25.10 Atherosclerotic heart disease of native coronary artery without angina pectoris; Z88.0 Allergy status to penicillin; Z88.5 Allergy status to narcotic agent; Z88.8 Allergy status to other drugs, medicaments and biological substances; Z79.899 Other long term (current) drug therapy; Z79.4 Long term (current) use of insulin; Z79.2 Long term (current) use of antibiotics; Z79.891 Long term (current) use of opiate analgesic; Z98.890 Other specified postprocedural states; Z90.710 Acquired absence of both cervix and uterus; Z89.022 Acquired absence of left finger(s); Z90.722 Acquired absence of ovaries, bilateral; Z11.52 Encounter for screening for COVID-19; R11.10 Vomiting, unspecified; Z79.84 Long term (current) use of oral hypoglycemic drugs
CPT/HCPCS: 0241U; 36415; 71046; 74177; 80048; 80053; 82306; 82947; 83690; 83735; 84478; 84484; 85025; 85027; 93005; 93010; 94762; 96361; 96365; 96366; 96374; 96375; 96376; 99284-25; 99285; 99285-25; A9270; J1650; J1815; J2060; J2270; J2405; J3010; J3480; J7030; J7050; J7120; Q9967